=== PATIENT | male | born 1960 | race Caucasian/White ===

== ENCOUNTER 2016-08-22 15:34 | Emergency (ER) | payer OTHER ==
[~2016-08-22] VITALS: Wt 90.0 kg
[~2016-08-22 15:34] MED LIST: CYCL-319 PO; HYDR-3498 PO
[2016-08-22] MEDS ORDERED: KETOROLAC 60 MG INJ IM STA (16:34)
--- NOTE | 2016-08-22 16:57 | ERD ---
ER Documentation Chief Complaint Date/Time DATE: 08/22/16 TIME: 16:30 Chief Complaint LOW BACKPAIN RADIATING TO BILATERAL LEGS FOR THE PAST 3 MOS. NO TRAUMA HPI 56 y/o male presents to ED for lower back pain that radiates to bilateral lower legs for about 3 months. Pain was described as sharp and achy dictates of bilateral lower leg with a pain rate of 7/10. Denies headache, loss of consciousness, dizziness, blurry vision, changes in vision, photophobia, facial pain, ear pain, throat pain, difficulty swallowing, neck pain, shoulder pain, chest pain, cough, hemoptysis, abdominal pain, loss of appetite, nausea, vomiting, hematochezia, diarrhea, constipation, urinary symptoms, bladder and bowel incontinences, extremity weakness, extremity tenderness, numbness or tingling sensation, difficulty walking, denies trauma, recent travel, recent exposure to illness, recent antibiotic use in the last 3 months, fever, chills. Allergy: NKA PMH: Diabetes. Medications: Metformin. Surgery: Denies. Family history: Denies family history of cardiac disease, sudden before the age of 50, heart attack before the age of 50. Primary Social History: Denies smoking, use of alcohol, use of illegal drugs. ROS All systems reviewed and are negative except as per history of present illness. Medications Home Meds Active Scripts Cyclobenzaprine Hcl* (Cyclobenzaprine Hcl*) 10 Mg Tablet, 10 MG PO TID, #15 TAB Prov:SADLER,CHAMP I. INSTRUCTIONAL INTERVENTIONIST 07/24/15 Hydrocodone Bit-Acetaminophen* (Pike*) 5-325 Mg Tab, 1 TAB PO Q6 Y for PAIN, # 7 TAB Prov:SADLERCHAMP I. INSTRUCTIONAL INTERVENTIONIST 07/24/15 Allergies Allergies: Coded Allergies: No Known Allergy (Unverified , 08/22/16) PMhx/Soc Hx Alcohol Use: No Hx Substance Use: No Hx Tobacco Use: No Physical Exam Vitals Vital Signs Date Time Temp Pulse Resp B/P Pulse Ox O2 Delivery O2 Flow Rate FiO2 08/22/16 15:41 98.6 92 21 125/74 97 Physical Exam CONSTITUTIONAL: Well-appearing; well-nourished; in no apparent distress. HEAD: Normocephalic; atraumatic. EYES: Conjunctiva clear, sclera non-icteric, EOM intact. PERRL Ears: Hearing intact. EACs clear, TMs non-bulging, non-inflamed, translucent & mobile, ossicles normal appearance, No obstructions, no erythema, no discharges Nose: No obstructions. No polyps. No external lesions. Mucosa non-inflamed. No external lesions, septum and turbinates normal. No rhinorrhea. No discharges. Frontal sinus is non-tender to palpation. Maxillary sinus is non-tender to palpation. MOUTH: Moist mucous membranes, no lesion, no obstructions, no vesicles, no thrush, patent airway Throat: Uvula in midline. Right tonsil is +1 with no erythema, no exudate. Left tonsil is +1 with no erythema, no exudate. Tolerating secretions well. Good gag reflex. Patent airway. Neck: Supple, without lesions, bruits, or adenopathy. No mass. Thyroid non- enlarged and non-tender to palpation. CHEST: Symmetrical chest. Respirations even and not labored. No retractions noted. CARDIOVASCULAR: Normal S1, S2. RRR. No murmurs, gallops. RESPIRATORY: Normal chest excursion with respiration; breath sounds clear and equal bilaterally; no wheezes, rhonchi, or rales. Breathing even and unlabored. Speaking in clear, full, and complete sentences w/ ease. ABDOMEN: Normal bowel sounds normal. Soft, round, non-distended, non-guarding, no tenderness, no rebound, no organomegaly, no masses, no pulsating abdominal mass. No hernia. No peritoneal signs. : No CVA tenderness. BACK: Symmetrical shoulder. Spine is midline without deformity, tenderness. No evidence of trauma or deformity. PELVIS: Stable pelvis. No evidence of trauma or deformity. MUSCULOSKELETAL: Normal gait and station. No misalignment, asymmetry, crepitation, defects, tenderness, masses, effusions, decreased range of motion, instability, atrophy or abnormal strength or tone in the head, neck, spine, ribs , pelvis or extremities. Positive bilateral straight leg test. Circulation sensation is intact. No neurovascular deficits. No calf tenderness. NEUROVASCULAR: Distal pulses are present. Pedal pulse are present, equal, and normal. Capillary refills are < 2 seconds. NEUROLOGIC: Alert and oriented x4. Speaks full and clear sentences. Cranial Nerves II-XII normal. Sensation to pain, touch, and proprioception normal. Grossly unremarkable. No neurologic deficits. Romberg test is negative. PSYCHOLOGICAL: The patients mood and manner are appropriate. No hallucinations , delusions. Not SI. Not HI. Has the capacity to decide for self SKIN: Normal for age and ethnicity; warm; dry; good turgor; no apparent lesions or exudates. No rashes, hives, discoloration. Intact. Results 24 hrs Current Medications Medications (Trade) Dose Ordered Sig/Jose Route PRN Reason Start Time Stop Time Status Last Admin Dose Admin Ketorolac Tromethamine (Toradol) 60 mg ONCE STAT IM 08/22/16 16:34 08/22/16 16:36 DC 08/22/16 16:44 Procedures/MDM Examination: Please see physical examination. Disease process, medical treatment was explained to the patient. He verbalized understanding and agreed with the diagnostic tests, medical treatment, and follow-up care. Treatment: Toradol IM. Re-evaluation: Relieve the pain. Consultation: None. Differential diagnosis: Low back pain versus low back strain versus sciatica Case, my present treatment were discussed with supervising emergency room physician, Dr. Yang Barr who agreed my present treatment and follow-up care. Medical decision makin56 y/o male presents to ED for lower back pain that radiates to bilateral lower legs for about 3 months. Pain was described as sharp and achy dictates of bilateral lower leg with a pain rate of 7/10. Patient's complaint, patient's history, my physical findings are consistent with my final diagnosis of low back pain and back pain with sciatica. Patient refuses diagnostic imaging stating that she does not need it as he does not have any trauma. Medications prescribed are the following: Motrin. Flexeril. Patient and family member are made aware of the side effects and adverse reactions of the medications prescribed. Instructed on when to seek emergent and medical attention in case allergic/anaphylactic reactions or severe side effects and or adverse reactions to medications. Patient and family member verbalized understanding. Patient instructed Instructed to follow-up with his PCP in 24-48 hours. Instructed to Call 911 for chest pain, shortness of breath. Advised to come back here in ED as soon as possible for severity of symptoms which includes but not limited to: any new symptoms; shortness of breath/difficulty of breathing; cardiovascular changes; severe gastrointestinal symptoms; signs and symptoms of bleeding and or infection; signs of compartment syndrome/neurovascular changes; neurological changes/deficits. Patient and family member verbalized understanding. Upon discharge, patient is alert and oriented x 4, speaks full and clear sentences, denies pain, has no neurological deficits, has no neurovascular deficits, difficulty of breathing. Breathing even and unlabored. Lung sounds are clear to auscultation. Not in distress. Appears comfortable. Ambulatory with steady gait. Appears satisfied with care provided here in ED. Departure Diagnosis: Primary Impression: Back pain Back pain location: low back pain Chronicity: unspecified Back pain laterality: bilateral Sciatica presence: with sciatica Sciatica laterality: bilateral sciatica Qualified Code: M54.42 - Bilateral low back pain with bilateral sciatica, unspecified chronicity BABAK DUNNE Aug 22, 2016 16:57
[2016-08-22] MEDS ORDERED: IBUP-1542 PO (16:58)
[2016-08-22] MEDS ORDERED: CYCL-319 PO (16:58)
== END 2016-08-22 17:05 | disposition home or self-care (01) ==
LOC: FTE 15:34
DX: M54.42 Lumbago with sciatica, left side (principal); M54.41 Lumbago with sciatica, right side; E11.9 Type 2 diabetes mellitus without complications; Z79.84 Long term (current) use of oral hypoglycemic drugs
CPT/HCPCS: 96372; J1885; Z7502

== ENCOUNTER 2017-01-03 15:02 | Emergency (ER) | payer OTHER ==
[~2017-01-03] VITALS: Wt 84.5 kg
[~2017-01-03 15:02] MED LIST changes: +IBUP-1542 PO
[2017-01-03] MEDS ORDERED: NAPH15DR22 BOTH EYES (15:28)
--- NOTE | 2017-01-03 19:17 | ERD ---
ER Documentation Chief Complaint Date/Time DATE: 01/03/17 TIME: 19:11 Chief Complaint BILAT EYE REDNESS/PAIN, ONSET 2 DAYS HPI 56-year-old male patient with no significant past medical history presents to the ED complaining of bilateral eye redness that occurred 2 days ago. States that it started to become itchy and he was sweating 2 nights ago when it was really hot. States that he did not have the AC on. Reports that when his sweat got into his bilateral eyes, he started to have a burning sensation. Denies any current eye pain, blurred vision, diplopia, weakness, numbness or tingling, headache. Denies wearing any contacts or glasses. Eye redness has resolved. Denies wearing glasses or contacts. ROS All systems reviewed and are negative except as per history of present illness. Medications Home Meds Active Scripts Naphazoline-Pheniramine* (Visine-A*) 15 Ml Drops, 2 DROP BOTH EYES Q4H Y for RED EYES, #1 EA Prov:ANNIE REESE PA-C 01/03/17 Cyclobenzaprine Hcl* (Cyclobenzaprine Hcl*) 10 Mg Tablet, 10 MG PO TID, #15 TAB Prov:PASILABAN,KLAR F 08/22/16 Ibuprofen* (Motrin*) 600 Mg Tab, 600 MG PO Q6 Y for PAIN, #30 TAB Prov:PASILABAN,KLAR F 08/22/16 Cyclobenzaprine Hcl* (Cyclobenzaprine Hcl*) 10 Mg Tablet, 10 MG PO TID, #15 TAB Prov:SADLER,CHAMP I. SECURITY LEAD 07/24/15 Hydrocodone Bit-Acetaminophen* (Mission*) 5-325 Mg Tab, 1 TAB PO Q6 Y for PAIN, # 7 TAB Prov:SADLER,CHAMP I. SECURITY LEAD 07/24/15 Allergies Allergies: Coded Allergies: No Known Allergy (Unverified , 08/22/16) PMhx/Soc Hx Alcohol Use: No Hx Substance Use: No Hx Tobacco Use: No Physical Exam Vitals Vital Signs Date Time Temp Pulse Resp B/P Pulse Ox O2 Delivery O2 Flow Rate FiO2 01/03/17 15:04 98.2 75 17 135/74 97 Physical Exam Const: [id number], well-nourished. In no acute distress. Head: Atraumatic, normocephalic Eyes: Normal Conjunctiva without injection. No purulent discharge. PERRLA. EOMI ENT: Normal external ear. Ear canal without erythema. Tympanic membrane pearly larson without effusion or bulging. Nasal canal clear with normal turbinates. Moist oropharynx without tonsillar exudates. Non-erythematous pharynx. Uvula midline. No drooling. No trismus. Neck: No cervical midline tenderness. Full range of motion. No meningismus. No cervical lymphadenopathy. No JVD. Resp: Clear to auscultation bilaterally. No wheezing, rhonchi, rales, or crackles. No accessory muscle use. No retractions. Cardio: Regular rate and rhythm. No murmurs, rubs or gallops. Skin: Normal skin turgor. No petechiae or rashes Ext: No cyanosis, or edema. Distal pulses intact bilaterally. Neur: Awake and alert. Normal gait. Normal coordination. Cranial Nerves II- VII intact. Muscle strength 5/5. Sensation intact. Psych: Normal Mood and Affect Procedures/MDM This is a 56-year-old male with a past medical history of diabetes presents the ED complaining of bilateral eye redness and burning sensation after his own sweat got into his eyes when he was sweating at night. Patient is afebrile and nontoxic-appearing. Patient has normal vital signs. Patient does not complain of any current eye pain. Eye redness has resolved. Patient is appropriate for outpatient management. Patient will be treated on outpatient basis with Visine A. Patient's ocular symptoms have stabilized while they have been evaluated in the department and are appropriate for outpatient work up. Low suspicion for ruptured globe, retinal detachment, periorbital cellulitis, acute angle closure glaucoma, deep space infection, iritis, traumatic hyphema, conjunctivitis, subconjunctival hemorrhage, corneal abrasion, corneal ulcer, pterygium, hypopyon , blepharitis, hordeolum, chalazion, or other emergent conditions. Discharge medications: Visine A Follow up with primary care physician and utility tender carding tomorrow. Instructed patient to return to the ED for any worsening symptoms. Patient is hemodynamically stable. Patient's questions were answered. Patient understood and agreed with discharge plan. Departure Diagnosis: Primary Impression: Facial sweating Additional Impression: Eye discomfort Laterality: bilateral Qualified Code: H57.13 - Eye discomfort, bilateral Condition: Stable Patient Instructions: Understanding Red Eye: Causes Referrals: [facility], [facility] YOU HAVE RECEIVED A MEDICAL SCREENING EXAM AND THE RESULTS INDICATE THAT YOU DO NOT HAVE A CONDITION THAT REQUIRES URGENT TREATMENT IN THE EMERGENCY DEPARTMENT. FURTHER EVALUATION AND TREATMENT OF YOUR CONDITION CAN WAIT UNTIL YOU ARE SEEN IN YOUR DOCTORS OFFICE WITHIN THE NEXT 1-2 DAYS. IT IS YOUR RESPONSIBILITY TO MAKE AN APPOINTMENT FOR FOLOW-UP CARE. IF YOU HAVE A PRIMARY DOCTOR --you should call your primary doctor and schedule an appointment IF YOU DO NOT HAVE A PRIMARY DOCTOR YOU CAN CALL OUR PHYSICIAN REFERRAL HOTLINE AT IF YOU CAN NOT AFFORD TO SEE A PHYSICIAN YOU CAN CHOSE FROM THE FOLLOWING [facility] [address] [facility]. [facility] [address] [facility] [address] [facility] [address] [address] [facility] [facility] [address] [facility]. [facility] YOU HAVE RECEIVED A MEDICAL SCREENING EXAM AND THE RESULTS INDICATE THAT YOU DO NOT HAVE A CONDITION THAT REQUIRES URGENT TREATMENT IN THE EMERGENCY DEPARTMENT. FURTHER EVALUATION AND TREATMENT OF YOUR CONDITION CAN WAIT UNTIL YOU ARE SEEN IN YOUR DOCTORS OFFICE WITHIN THE NEXT 1-2 DAYS. IT IS YOUR RESPONSIBILITY TO MAKE AN APPOINTMENT FOR FOLOW-UP CARE. IF YOU HAVE A PRIMARY DOCTOR --you should call your primary doctor and schedule and appointment IF YOU DO NOT HAVE A PRIMARY DOCTOR YOU CAN CALL OUR PHYSICIAN REFERRAL HOTLINE AT . IF YOU CAN NOT AFFORD TO SEE A PHYSICIAN YOU CAN CHOSE FROM THE FOLLOWING [facility]: [facility] [address] [place] [address] [facility] [address] [place] [address] [facility] [address] [place] [address] [facility] Hours: Mon - Fri 9:00 AM - 5:00 PM Additional Instructions: Visite a bowers doctor bowers ojos maana para un EXAMEN.Regrese a estas instalaciones si no se mejora jack esperbamos o jack le dijimos. ANNIE REESE PA-C Jan 03, 2017 19:17 si no se mejora jack esperbamos o jack le dijimos. ANNIE REESE PA-C Jan 03, 2017 19:17
== END 2017-01-03 15:30 | disposition home or self-care (01) ==
LOC: E/R 15:02
DX: R61 Generalized hyperhidrosis (principal)
CPT/HCPCS: 99283